=== PATIENT | female | born 1965 | race Caucasian/White ===

== ENCOUNTER 2016-11-27 09:39 | Inpatient (IN) | payer MEDICARE, OTHER ==
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
--- NOTE | ~2016-11-27 | PN ---
Unit #: [id number] #: [id number] Patient: MARYANN AGUILA [id number] [facility] [address] [place] [address] [id number] I MR#: [id number] NAME: MARYANN AGUILA ROOM: [facility] Age: 51 Sex: F Admission Date: 11/27/2016 : 1965 Attending Physician: Young Gonzalez M.D. Admitting Physician: Young Gonzalez M.D. Primary Care Physician: Raghu Wallace PROGRESS NOTES DATE 11/28/2016 DISCUSSION The patient became profoundly manic and agitated this morning necessitating a one-time IM injection of Geodon. The patient appears to be in a probable mixed or manic phase of bipolar disorder. Accordingly I will discontinue Cymbalta and begin Geodon 40 mg twice daily. Dictated by... Young Gonzalez M.D. CB/bzg TD: 11/28/2016 14:04 JOB #: [id number] [facility] PROGRESS NOTES Page 1 of 1 X Young Gonzalez MD X PROGRESS NOTE
--- NOTE | ~2016-11-27 | PN ---
Unit #: [id number] #: [id number] Patient: MARYANN AGUILA [id number] [facility] [address] [place] [address] [id number] I MR#: [id number] NAME: MARYANN AGUILA ROOM: [facility] Age: 51 Sex: F Admission Date: 11/27/2016 : 1965 Attending Physician: Young Gonzalez M.D. Admitting Physician: Young Gonzalez M.D. Primary Care Physician: Raghu Wallace PROGRESS NOTES DATE 11/29/2016 DISCUSSION The patient continues to have periods of agitation requiring p.r.n. Geodon another of which occurred this morning. I will go ahead with rapid upper titration of Geodon increasing her dose to 60 mg twice daily as of today. I will also add Cogentin as staff is reporting some possible (1)___ of EPS. Dictated by... Young Gonzalez M.D. CB/jesse TD: 11/30/2016 02:55 JOB #: [id number] [facility] PROGRESS NOTES Page 1 of 1 X Young Gonzalez MD X PROGRESS NOTE
--- NOTE | ~2016-11-27 | HP ---
Unit #: [id number] #: [id number] Patient: MARYANN AGUILA [id number] [place] [address] [id number] I MR#: [id number] NAME: MARYANN AGUILA ROOM: P261 Age: 51 Sex: F Admission Date: 11/27/2016 : 1965 Attending Physician: Young Gonzalez M.D. Admitting Physician: Young Gonzalez M.D. Primary Care Physician: Adriana Townsend A.P.RRoberto CarlosN. HISTORY AND PHYSICAL HISTORY OF PRESENT ILLNESS Maryann is a 51 year old admitted to [address] [place] [address] with increased anxiety and belligerent behavior. She has had other admissions to this facility for the same. PAST MEDICAL HISTORY 1. Obesity. 2. High blood pressure. 3. Hypercholesterolemia. 4. GERD. 5. LYNDSAY. 6. COPD. 7. Hypothyroidism. 8. History of anemia. 9. History of kidney stones. 10. History of diverticulitis. 11. History of MRSA. 12. History of atrial fib. 13. History of DVT. 14. History of migraine headaches. PAST SURGICAL HISTORY 1. Lithotripsy. 2. Rhinoplasty. ALLERGIES Reglan, morphine, NSAIDs, Phenergan. SOCIAL HISTORY She denies cigarettes, alcohol and illicit drug use. FAMILY HISTORY Medically noncontributory. REVIEW OF SYSTEMS CONSTITUTIONAL: No fever or chills. HEENT: Denies any sore throat, ear pain or runny nose. CARDIOVASCULAR: Denies chest pain, irregular heart rhythm or palpitations. CHEST: Denies shortness of breath or cough. No hemoptysis. GASTROINTESTINAL: Denies nausea, vomiting, diarrhea or chronic constipation. ENDOCRINE: Denies history of increased thirst or urination. No recent significant weight loss or gain. Unit #: [id number] #: [id number] Patient: MARYANN AGUILA GENITOURINARY: Denies dysuria, frequency, or hematuria. SKIN: Denies any rashes. HEMATOLOGIC: Denies history of increased bleeding or bruising. MUSCULOSKELETAL: Denies any hot, swollen joints. No generalized muscle pain. NEUROLOGIC: Denies problems with vision or speech. No frequent, severe headaches. No numbness, tingling or weakness in any extremities. Denies loss of bladder or bowel control. CURRENT MEDICATIONS 1. Cymbalta 60 mg daily. 2. Claritin 5 mg daily. 3. Estrace 1 mg daily. 4. Progesterone 5 mg daily. 5. Singulair 10 mg daily. 6. Norvasc 5 mg daily. 7. Levothroid 0.075 mg daily. 8. Lamictal 25 mg daily. 9. Lipitor 10 mg daily. 10. Advair Diskus b.i.d. 11. KCL 10 mEq b.i.d. 12. Topamax 100 mg b.i.d. 13. Carafate 1 gram q.i.d. 14. Milk of Magnesia p.r.n. 15. Maalox p.r.n. 16. Tylenol p.r.n. 17. Zofran p.r.n. 18. Imitrex p.r.n. 19. Bentyl p.r.n. 20. Vistaril p.r.n. PHYSICAL EXAMINATION GENERAL: Alert, morbidly obese, no apparent distress. VITAL SIGNS: Blood pressure 130/78, heart rate 80, respirations 16, temperature 98.6. WEIGHT: 217. HEIGHT: 5 feet 7 inches. SKIN: Warm and dry without rash or lesion. HEENT: Normocephalic. TMs not viewed. Oral and nasal passages clear. Conjunctivae clear. PERRLA. EOMs intact. NECK: Supple without lymphadenopathy or thyromegaly. HEART: Regular rate and rhythm without murmur. LUNGS: Clear. ABDOMEN: Soft, nontender. : Not done. EXTREMITIES: No evidence of cyanosis, clubbing or edema. Moves all without focal deficit. NEUROLOGICAL: Grossly within normal limits. Cranial Nerves: II: Visual warren are intact. III, IV AND : Extraocular movements are intact. Pupils are equal, round and reactive to light. V: Facial sensation is grossly normal. VII: Facial movements and expression are normal. VIII: Auditory acuity grossly intact. IX, X: Uvula is midline. Phonation is normal. XI: Patient shrugs shoulders and turns head normally. XII: Tongue protrudes in the midline. Sensory and Motor Function: Sensory and motor sensation is grossly normal. Motor: moves all extremities well. Coordination: Gait is normal. Deep Tendon Reflexes: Intact. Unit #: [id number] #: [id number] Patient: MARYANN AGUILA IMPRESSION Psychiatric admission. RECOMMENDATIONS PSYCHIATRIC: Per psychiatrist. MEDICAL: See no contraindications to participate in facility's activities. MEDICAL PROGNOSIS Good. MEDICAL CONDITION Stable. Dictated by... Marivel Norton P.A.-C. for Mary Ellen Cordero/nina TD: 11/27/2016 21:01 JOB #: [id number] HISTORY AND PHYSICAL Page 1 of 1 X Marivel Norton X HISTORY AND PHYSICAL
--- NOTE | ~2016-11-27 | PN ---
Unit #: [id number] #: [id number] Patient: MARYANN AGUILA [id number] [facility] [address] [place] [address] [id number] I MR#: [id number] NAME: MARYANN AGUILA ROOM: [facility] Age: 51 Sex: F Admission Date: 11/27/2016 : 1965 Attending Physician: Young Gonzalez M.D. Admitting Physician: Young Gonzalez M.D. Primary Care Physician: Raghu Wallace PROGRESS NOTES DATE 12/01/2016 DISCUSSION The patient seems significantly improved with the 60 mg dose of Geodon. She has not required any p.r.n.s in over 24 hours and is pleasant and cooperative when seen today. She may be approaching her baseline and discharge should take place as early as tomorrow. Dictated by... Young Gonzalez M.D. CB/jesse TD: 12/02/2016 04:41 JOB #: [id number] [facility] PROGRESS NOTES Page 1 of 1 X Young Gonzalez MD X PROGRESS NOTE
--- NOTE | ~2016-11-27 | PA ---
Unit #: [id number] #: [id number] Patient: MARYANN AGUILA [id number] [place] [address] [id number] I MR#: [id number] NAME: MARYANN AGUILA ROOM: [facility] Age: 51 Sex: F Admission Date: 11/27/2016 : 1965 Date of Assessment: 11/27/2016 Attending Physician: Young Gonzalez M.D. Admitting Physician: Young Gonzalez M.D. Primary Care Physician: Bryson Wallace.P.RKimberly PSYCHIATRIC ASSESSMENT IDENTIFYING INFORMATION The patient is a 51-year-old white female admitted to the [address] [place] [address] Unit with increasing depression and suicidal ideation. CHIEF COMPLAINT None given. INFORMANT(S) Patient, reliability is good. HISTORY OF PRESENT ILLNESS The patient is a 51-year-old unmarried white female who was admitted to the [facility] unit after reporting positive suicidal ideation. The patient reports that she had recently attempted to reduce her medication, specifically discontinuing Lamictal and reducing her dose of Cymbalta. She reports that as a result she has had increasing depression, anxiety, and thoughts of suicide. The patient reports current stressors include ongoing grief related to the of her mother 2 years ago and her financial stressors. She has multiple medical issues which will be described below. The patient was last hospitalized at this facility in December of 2015 under the care of this physician. She is followed on an outpatient basis by Dr. Patt Rangel. For more complete history of present illness, please refer to previously dictated notes. PAST PSYCHIATRIC HISTORY Reviewed, no changes. PAST MEDICAL HISTORY Reviewed, no changes. MEDICATIONS Amlodipine, Macrobid, Vistaril, Cymbalta, dicyclomine, Topamax, zolmitriptan, Flonase, potassium citrate, estradiol, sucralfate, Singulair, medroxyprogesterone, baclofen, Zofran, levothyroxine, Advair, levocetirizine, atorvastatin, and DuoNeb. ALLERGIES Morphine NSAIDs, sulfa, aspirin, Cefaclor, Cefprozil, cefuroxime, metoclopramide, promethazine. FAMILY HISTORY Reviewed, no changes. Unit #: [id number] #: [id number] Patient: MARYANN AGUILA SOCIAL HISTORY Reviewed, no changes. MENTAL STATUS EXAMINATION Examination at this time reveals the patient to be an obese white female appearing stated age. She is casually dressed and groomed. She is awake, alert, and oriented in all spheres. Mood is dysphoric, her affect constricted. Speech is generally well-coherent. There are no gross deficits in memory or cognition noted. Intelligence is judged to be in the average range based on fund of knowledge. The patient is cooperative throughout the interview. She is currently endorsing positive suicidal ideation. She denies homicidal ideation. She denies any psychotic symptoms. Her judgment and insight appear to be intact. ASSETS AND LIABILITIES The patient's assets: Motivation for change. Liabilities: Lack of resources. DIAGNOSTIC IMPRESSION Bipolar disorder, depressed phase. TREATMENT PLAN The patient remains hospitalized for safety and stabilization. We will restart lamotrigine as per the patient's request and increased Cymbalta to 60 mg daily. All other medications will be continued. Suicide precautions are in place. ESTIMATED LENGTH OF STAY 5 to 7 days. The followup will take place in the intensive outpatient program provided by this facility and through the auspices of [facility]. Dictated by... Young Gonzalez M.D. AMIE/debby TD: 11/27/2016 14:34 JOB #: [id number] PSYCHIATRIC ASSESSMENT Page 1 of 1 X Young Gonzalez MD X PSYCHIATRIC ASSESSMENT
--- NOTE | ~2016-11-27 | DS ---
Unit #: [id number] #: [id number] Patient: MARYANN AGUILA [id number] [place] [address] [id number] I MR#: [id number] NAME: MARYANN AGUILA ROOM: [facility] Age: 51 Sex: F Admission Date: 11/27/2016 : 1965 Discharge Date: 12/02/2016 Attending Physician: Young Gonzalez M.D. Primary Care Physician: Derrick WallaceP.R.NRoberto Carlos DISCHARGE SUMMARY REASON FOR ADMISSION The patient is a 51-year-old white female, admitted to the [facility] unit in a manic phase of bipolar disorder. HOSPITAL COURSE The patient was admitted to the 2[facility] unit and continued on previously prescribed medication. She was restarted on Lamictal a medication to which she does have a history of positive response and was initially begun on Cymbalta; however, it became clear as the patient's hospitalization progressed that she was exhibiting symptoms of mixed alannah having required multiple IM doses of Geodon. Accordingly, Cymbalta was discontinued and the patient begun on Geodon 40 mg daily. This medication was increased to 60 mg daily on 11/29/2016. The patient at that point began to show significant improvement. She was brighter and required no further p.r.n.'s after 11/29/2016. By 12/02/2016, the patient was in bright spirits and denied suicidal or homicidal ideation. She was agreeable with plan for followup in the intensive outpatient program provided by this facility and discharge was ordered. FINAL DIAGNOSES Bipolar disorder, most recent episode mixed with psychotic features; obesity; urinary tract infection; hypertension; migraine headache; environmental allergies; gastritis; hypothyroidism; asthma. DISPOSITION ON DISCHARGE The patient was discharged on the following medications; Cogentin 2 mg q.8 hours p.r.n. stiffness, Geodon 60 mg b.i.d. for mood stabilization, Lamictal 25 mg at h.s. for mood stabilization, Lipitor 10 mg at bedtime for dyslipidemia, Claritin 5 mg once daily for environmental allergies, Advair Diskus one puff b.i.d. for shortness of air, Synthroid 0.075 mg daily for hypothyroidism, Provera 5 mg once daily for hormonal supplementation, Singulair 10 mg once daily for environmental allergies, Carafate 1 g q.i.d. for gastritis, Estrace 1 mg once daily for hormonal supplementation, Klor-Con 10 mEq b.i.d. for potassium supplementation, Flonase 2 sprays daily for environmental allergies, Imitrex 100 mg once daily p.r.n. migraine headache, Topamax 100 mg b.i.d. for migraine headache, Bentyl 20 mg q.6 hours p.r.n. abdominal cramping, Vistaril 25 mg q.4 hours p.r.n. anxiety, Norvasc 5 mg daily for hypertension, Macrobid 100 mg b.i.d. for urinary tract infection. DISCHARGE INSTRUCTIONS No dietary or physical restrictions were placed on the patient at the time of discharge. Unit #: [id number] #: [id number] Patient: MARYANN AGUILA FOLLOWUP Followup will take place through the auspices of [facility] and the intensive outpatient program provided by this facility. PROGNOSIS The patient's prognosis is considered fair. Dictated by... Young Gonzalez M.D. CB/nona TD: 12/03/2016 01:57 JOB #: [id number] DISCHARGE SUMMARY Page 1 of 1 X Young Gonzalez MD X DISCHARGE SUMMARY
--- NOTE | ~2016-11-27 | PN ---
Unit #: [id number] #: [id number] Patient: MARYANN AGUILA [id number] [facility] [address] [place] [address] [id number] I MR#: [id number] NAME: MARYANN AGUILA ROOM: [facility] Age: 51 Sex: F Admission Date: 11/27/2016 : 1965 Attending Physician: Young Gonzalez M.D. Admitting Physician: Young Gonzalez M.D. Primary Care Physician: Asad WallaceRKimberly NGUYỄN PROGRESS NOTES DATE 11/30/2016 DISCUSSION The patient seems somewhat improved today. She is less anxious and has not required p.r.n. medication. Upward titration of Geodon will be considered but for now we will hold at 60 mg dose. The patient is complaining of some diarrhea and I will add Imodium AD on p.r.n. basis. Dictated by... Young Gonzalez M.D. CB/nina TD: 11/30/2016 14:10 JOB #: [id number] [facility] PROGRESS NOTES Page 1 of 1 X Young Gonzalez MD X PROGRESS NOTE
--- NOTE | ~2016-11-27 | BLK LETTER ---
[facility] [address] [place] [address] November 30, 2016 Penny Marcial [facility] [place] [address] Dear Ms. Marcial: Per our conversation on 11-26-2016, this letter is to inform you that your record with [facility] has been closed. If you are requiring services elsewhere, you may wish to [facility]. Their number is [phone]. Another option is [facility] at [phone]. There is also [facility], [facility] and [facility]. We will be happy to forward copies of your medical records directly to the psychiatrist or clinic of your choice. You can arrange that be calling our Medical Records Department at [phone]. Sincerely, Patt Rangel M.D. SHERLY/levi
[~2016-11-27 09:39] MED LIST: ABILIFY PO; ATIVAN PO; BUSPAR PO; NEURONTIN PO; NEXIUM PO; SINGULAIR PO; SKELAXIN PO; THORAZINE PO; TOPROL XL PO; TRILEPTAL PO; ZYRTEC PO
[2016-11-28 11:25] LABS: BASOPHIL% 0.4 % (0-2.5); EOSINOPHIL# 0.2 X10e3 (0-0.7); EOSINOPHIL% 2.9 % (0.0-7.0); HEMATOCRIT 39.5 % (35.0-45.0); LYMPHOCYTE# 2.6 X10e3 (1.0-3.5); LYMPHOCYTE% 37.3 % (17.0-45.0); MEAN CELL VOLUME 84.5 FL (83-96); MEAN CORPUSCULAR HEMOGLOBIN 27.9 PG (28-34); MEAN PLATELET VOLUME 8.1 FL (6.5-11.5); MONOCYTE# 0.6 X10e3 (0-1.0); MONOCYTE% 8.2 % (3.0-12.0); NEUTROPHIL# 3.5 X10e3 (1.5-7.1); NEUTROPHIL% 51.2 % (40-75); PLATELET COUNT 272 X10e3 (140-420); RED BLOOD COUNT 4.68 X10e (3.90-5.30); RED CELL DISTRIBUTION WIDTH 13.9 % (11.0-15.5); WHITE BLOOD COUNT 6.9 X10e3 (4.0-10.5)
[2016-11-28 11:37] LABS: DIFF IND NO
[2016-11-28 11:42] LABS: URINE APPEARANCE CLOUDY; URINE BILIRUBIN NEG (NEG); URINE BLOOD NEG (NEG); URINE COLOR YELLOW; URINE GLUCOSE NEG (NEG); URINE KETONE NEG (NEG); URINE LEUKOCYTE ESTERASE NEG (NEG); URINE NITRATE NEG (NEG); URINE PH 7.5 (5-8); URINE PROTEIN NEG (NEG); URINE SPECIFIC GRAVITY 1.008 (1.003-1.035); URINE UROBILINOGEN 0.2 MG/DL (NEG)
[2016-11-28 11:44] LABS: ALBUMIN SERUM 4.1 g/dL (3.5-5.0); BILIRUBIN,TOTAL 0.5 mg/dL (0.2-2.0); BUN/CREATININE RATIO 18.75; CALCIUM SERUM 9.4 mg/dL (8.4-10.2); CREATININE SERUM 0.8 mg/dL (0.6-1.4); GLOM FILT RATE Estimated 84.8 mL/min (>60); POTASSIUM 3.9 mmol/L (3.5-5.1)
[2016-11-28 12:28] LABS: AMPHETAMINE NEG (NEG); BARBITURATES NEG (NEG); BENZODIAZEPINES NEG (NEG); COCAINE NEG (NEG); MARIJUANA NEG (NEG); OPIATES NEG (NEG); TRICYCLIC ANTIDEPRESSANTS NEG (NEG); U METHADONE NEG (NEG)
[2016-11-30 14:09] LABS: THYROID STIMULATING HORMONE 0.89 uIU/ml (0.34-5.60)
[2016-11-30 14:15] LABS: FREE THYROXIN (T4) 0.64 ng/dL (0.58-1.64)
== END 2016-12-02 14:55 | disposition home or self-care (01) | DRG 885 ==
LOC: P2L 09:39
PROVIDERS: Specialist
DX: F31.9 Bipolar disorder, unspecified (principal); I10 Essential (primary) hypertension; N39.0 Urinary tract infection, site not specified; Z88.2 Allergy status to sulfonamides; Z88.8 Allergy status to other drugs, medicaments and biological substances; E66.9 Obesity, unspecified; J44.9 Chronic obstructive pulmonary disease, unspecified; G47.33 Obstructive sleep apnea (adult) (pediatric)
CPT/HCPCS: 80053; 80307; 81003; 84439; 84443; 85025; J3486